=== PATIENT | female | born 1995 ===

== ENCOUNTER 2017-10-28 16:25 | Emergency (ER) | payer BC, OTHER, SELFPAY | END 2017-10-28 17:55 | disposition home or self-care (01) | LOC: ERS 16:25 | DX: S09.90XA Unspecified injury of head, initial encounter (principal); G44.309 Post-traumatic headache, unspecified, not intractable; W04.XXXA Fall while being carried or supported by other persons, initial encounter | CPT/HCPCS: 99283 ==